=== PATIENT | male | born 1975 | race Caucasian/White ===

== ENCOUNTER 2017-03-06 21:21 | Inpatient (IN) | payer MEDICARE ==
--- NOTE | ~2017-03-06 | PA ---
Unit #: [id number] #: [id number] Patient: ADRYAN LOUISE [id number] [facility] [address] [place] [address] [id number] I MR#: [id number] NAME: ARDYAN LOUISE ROOM: [facility] [place] Age: 42 Sex: M Admission Date: 03/06/2017 : 1975 Date of Assessment: 03/07/2017 Attending Physician: Jose Angel Hoffman M.D. Admitting Physician: Jose Angel Hoffman M.D. Primary Care Physician: Primary Care Physician No PSYCHIATRIC ASSESSMENT DATE OF SERVICE 03/07/2017. INFORMANTS The patient, reliable; OLOP, reliable. CHIEF COMPLAINT "I need to get back on my medications." HISTORY OF PRESENT ILLNESS Adryan Louise is a 42-year-old man with a remote history of treatment at this facility. He says he has been using drugs and alcohol to excess and recently was released from incarceration. He has been using heroin heavily and also states he is on long-term disability for mental health issues. He had some suicidal thinking, but could not contract for safety. PAST PSYCHIATRIC HISTORY Last admission in this facility was in 2011 and he has also been at [facility], [facility], and [facility] in the past. He is currently reportedly taking Zyprexa 20 mg at bedtime for mood stability and Neurontin 800 mg t.i.d. for mood and pain. FAMILY PSYCHIATRIC HISTORY There is an extensive family history of substance abuse and unknown history of mental illness. SOCIAL HISTORY The patient denied history of childhood abuse or neglect. He is a heterosexual man who was recently fined for unclear purposes and spend some time in halfway. He completed a GED. He reports he is on long-term disability for mental health issues. He reports recently losing his apartment and car. PAST MEDICAL HISTORY The patient has a history of fibromyalgia, "Broken neck," and COPD. MEDICATIONS As noted above. ALLERGIES [place] and Thorazine. Unit #: [id number] #: [id number] Patient: ADRYAN LOUISE SUBSTANCE ABUSE HISTORY The patient is using heroin actively as well as occasional benzodiazepines. He has been smoking marijuana and using cocaine in the past and is also using illicit benzodiazepines. MENTAL STATUS EXAMINATION The patient presented as a disheveled man who appeared older than his stated age. Speech was spontaneous and easily understood. Musculoskeletal examination was calm. Mood was irritable with a congruent affect. He was alert and fully oriented. Memory and concentration were fair to good. Thought processes were goal directed with no active psychosis. He reported vague suicidal ideation and could not contract for safety. Insight and judgment, fair. Fund of knowledge and abstraction, fair. ASSETS AND LIABILITIES The patient is in general good health and knows local resources. Liabilities include difficulty maintaining sobriety, recent incarceration, lack of current psychiatric treatment. ADMITTING DIAGNOSES AXIS I: Bipolar depressed, polysubstance dependence, opioid dependence. AXIS II: No diagnosis. AXIS III: Chronic pain. AXIS IV: AXIS V: PSYCHIATRIC PLAN The patient was admitted on the opioid detox protocol and suicide precautions. We will restart Zyprexa and hold Neurontin as it exists on the protocol. He will enroll in dual diagnosis groups and activities, and physical examination and laboratory studies will be ordered and reviewed. Treatment goals are establishment of sobriety, improvement in mood, improvement in insight, and improvement in coping skills. DISCHARGE PLANNING Follow up with [facility]. ESTIMATED LENGTH OF STAY 5 days. Dictated by... Jose Angel Hoffman M.D. [facility]/reinier TD: 03/19/2017 14:07 JOB #: [id number] Unit #: [id number] #: [id number] Patient: ADRYAN LOUISE PSYCHIATRIC ASSESSMENT Page 1 of 1 X Jose Angel Hoffman MD X PSYCHIATRIC ASSESSMENT
--- NOTE | ~2017-03-06 | HP ---
Unit #: [id number] #: [id number] Patient: SHRUTHI JONES [id number] [place] [address] [id number] I MR#: [id number] NAME: SHRUTHI JONES ROOM: P210 Age: 42 Sex: M Admission Date: 03/06/2017 : 1975 Attending Physician: Jose Angel Hoffman M.D. Admitting Physician: Jose Angel Hoffman M.D. Primary Care Physician: Primary Care Physician No HISTORY AND PHYSICAL HISTORY OF PRESENT ILLNESS Shruthi is a 42 year old admitted to [address] [place] [address] because of his polysubstance abuse which includes benzodiazepines and IV heroin. PAST MEDICAL HISTORY Long history of illicit substance abuse to include IV drugs. PAST SURGICAL HISTORY 1. Low back x 2 2. Appendectomy ALLERGIES [place], chlorpromazine. SOCIAL HISTORY Smokes one pack per day. Has a long history of polysubstance abuse to include benzodiazepines, crack cocaine and IV heroin. FAMILY HISTORY Medically noncontributory. REVIEW OF SYSTEMS CONSTITUTIONAL: No fever or chills. HEENT: Denies any sore throat, ear pain or runny nose. CARDIOVASCULAR: Denies chest pain, irregular heart rhythm or palpitations. CHEST: Denies shortness of breath or cough. No hemoptysis. GASTROINTESTINAL: Denies nausea, vomiting, diarrhea or chronic constipation. ENDOCRINE: Denies history of increased thirst or urination. No recent significant weight loss or gain. GENITOURINARY: Denies dysuria, frequency, or hematuria. SKIN: Denies any rashes. HEMATOLOGIC: Denies history of increased bleeding or bruising. MUSCULOSKELETAL: He reports neck and shoulder pain. He denies any numbness, tingling or weakness in his upper extremities. NEUROLOGIC: Denies problems with vision or speech. No frequent, severe headaches. No numbness, tingling or weakness in any extremities. Denies loss of bladder or bowel control. CURRENT MEDICATIONS 1. Detox protocol 2. Requip 0.5 mg q.h.s. Unit #: [id number] #: [id number] Patient: SHRUTHI JONES 3. Zyprexa 20 mg q.h.s. 4. Motrin p.r.n. 5. Milk of Magnesia p.r.n. 6. Maalox p.r.n. 7. Tylenol p.r.n. PHYSICAL EXAMINATION GENERAL: Alert, well-nourished, in no apparent distress. VITAL SIGNS: Blood pressure 110/80, heart rate 76, respirations 16, temperature 98.6. WEIGHT: 141 pounds. HEIGHT: 5'7". SKIN: Warm and dry without rash or lesion. HEENT: Normocephalic. TMs not viewed. Oral and nasal passages clear. Conjunctivae clear. Pupils equal, round and reactive to light and accommodation. Extraocular movements intact. NECK: Supple without lymphadenopathy or thyromegaly. HEART: Regular rate and rhythm without murmur. LUNGS: Clear. ABDOMEN: Soft, nontender. : Not done. EXTREMITIES: No evidence of cyanosis, clubbing or edema. Moves all extremities without focal deficit. NEUROLOGICAL: Grossly within normal limits. Cranial Nerves: II: Visual wallace are intact. III, IV AND : Extraocular movements are intact. Pupils are equal, round and reactive to light. V: Facial sensation is grossly normal. VII: Facial movements and expression are normal. VIII: Auditory acuity grossly intact. IX, X: Uvula is midline. Phonation is normal. XI: Patient shrugs shoulders and turns head normally. XII: Tongue protrudes in the midline. Sensory and Motor Function: Sensory and motor sensation is grossly normal. Motor: moves all extremities well. Coordination: Gait is normal. Deep Tendon Reflexes: Intact. IMPRESSION Psychiatric admission RECOMMENDATIONS PSYCHIATRIC: Per psychiatrist. MEDICAL: 1. I see no contraindications to participating in facility's activities. 2. DC ibuprofen and start Relafen 500 mg one p.o. b.i.d. for his reported neck pain. 3. Screen for hepatitis C. liver enzymes are elevated on admission. MEDICAL PROGNOSIS Good. MEDICAL CONDITION Stable. Dictated by... Unit #: [id number] #: [id number] Patient: SHRUTHI JONES PDarrel-C. for Isiah Chambers TD: 03/07/2017 21:33 JOB #: [id number] HISTORY AND PHYSICAL Page 1 of 1 X Bri Coles X HISTORY AND PHYSICAL
--- NOTE | ~2017-03-06 | DS ---
Unit #: [id number] #: [id number] Patient: SHRUTHI LOUISE [id number] [place] [address] [id number] I MR#: [id number] NAME: SHRUTHI LOUISE ROOM: [facility] Age: 42 Sex: M Admission Date: 03/06/2017 : 1975 Discharge Date: 03/08/2017 Attending Physician: Jose Angel Hoffman M.D. Primary Care Physician: Primary Care Physician No DISCHARGE SUMMARY REASON FOR ADMISSION Mr. Louise is a 42-year-old man who reports he has been using heroin, benzodiazepines, and other drugs. He has recently released from incarceration and has not been able to stay on his psychiatric medications. He was admitted for stabilization. DIAGNOSTIC STUDIES LABORATORY RESULTS: Please see hospital chart. HOSPITAL COURSE The patient was admitted and placed on the opioid detox protocol and suicide precautions. His psychiatric medications were restarted. The patient was irritable and generally did not cooperate with treatment throughout the hospitalization, refusing to attend groups and complained bitterly of pain. On the date of discharge, he demanded discharge against medical advice because he wanted to seek medical treatment at an acute medical facility. He was interviewed by the beam house inspector and medical social consultant who felt that he was able to give a reliable contract for safety and was discharged AMA at his request. DISCHARGE DIAGNOSES AXIS I: Opioid dependence with withdrawal; bipolar depressed; polysubstance dependence. AXIS II: Antisocial traits. AXIS III: Chronic pain. AXIS IV: AXIS V: DISCHARGE INSTRUCTIONS Follow up with acute care facility of your choice and chemical dependence programing of your choice. DISCHARGE MEDICATIONS None. CONDITION AT DISCHARGE Fair. PROGNOSIS Fair. DIET AND ACTIVITY Unit #: [id number] #: [id number] Patient: SHRUTHI LOUISE Ad jennifer. Dictated by... Jose Angel Hoffman M.D. [facility]/denissel TD: 03/19/2017 12:42 JOB #: [id number] DISCHARGE SUMMARY Page 1 of 1 X Jose Angel Hoffman MD DISCHARGE SUMMARY
[2017-03-07 09:53] LABS: BASOPHIL# 0.1 X10e3 (0-0.3); BASOPHIL% 0.8 % (0-2.5); EOSINOPHIL# 0.4 X10e3 (0-0.7); EOSINOPHIL% 4.9 % (0.0-7.0); HEMATOCRIT 48.2 % (38.0-50.0); LYMPHOCYTE# 1.8 X10e3 (1.0-3.5); LYMPHOCYTE% 23.5 % (17.0-45.0); MEAN CELL VOLUME 97.7 FL (83-96); MEAN CORPUSCULAR HEMOGLOBIN 32.4 PG (28-34); MEAN CORPUSCULAR HGB CONC 33.2 g/dL (30-36); MEAN PLATELET VOLUME 8.3 FL (6.5-11.5); MONOCYTE% 13.2 % (3.0-12.0); NEUTROPHIL# 4.5 X10e3 (1.5-7.1); NEUTROPHIL% 57.6 % (40-75); PLATELET COUNT 289 X10e3 (140-420); RED BLOOD COUNT 4.93 X10e (3.90-5.60); RED CELL DISTRIBUTION WIDTH 13.9 % (11.0-15.5); WHITE BLOOD COUNT 7.8 X10e3 (4.0-10.5)
[2017-03-07 09:55] LABS: ALBUMIN SERUM 3.7 g/dL (3.5-5.0); BILIRUBIN,TOTAL 0.4 mg/dL (0.2-2.0); BUN/CREATININE RATIO 11.81; CALCIUM SERUM 9.5 mg/dL (8.4-10.2); CREATININE SERUM 1.1 mg/dL (0.6-1.4); GLOM FILT RATE Estimated 81.8 mL/min (>60); POTASSIUM 4.8 mmol/L (3.5-5.1); PROTEIN TOTAL SERUM 6.7 g/dL (6.0-8.3)
[2017-03-07 10:07] LABS: DIFF IND NO
== END 2017-03-08 23:18 | disposition left against medical advice (07) | DRG 894 ==
LOC: P2S 21:21
PROVIDERS: Psychiatry & Neurology Psychiatry
PROC: HZ2ZZZZ Detoxification Services for Substance Abuse Treatment (ICD-10-PCS; principal; 2017-03-06)
DX: F11.20 Opioid dependence, uncomplicated (principal); F31.30 Bipolar disorder, current episode depressed, mild or moderate severity, unspecified; M79.7 Fibromyalgia; F17.210 Nicotine dependence, cigarettes, uncomplicated
CPT/HCPCS: 80053; 85025; 86592; 87806

== ENCOUNTER 2017-03-18 15:06 | Inpatient (IN) | payer MEDICARE ==
--- NOTE | ~2017-03-18 | PN ---
Unit #: [id number] #: [id number] Patient: SHRUTHI LOUISE [id number] [facility] [address] [place] [address] [id number] I MR#: [id number] NAME: SHRUTHI LOUISE ROOM: P209 Age: 42 Sex: M Admission Date: 03/18/2017 : 1975 Attending Physician: Jose Angel Hoffman M.D. Admitting Physician: Jose Angel Hoffman M.D. Primary Care Physician: Primary Care Physician No [facility] PROGRESS NOTES DATE 03/21/2017 DISCUSSION Mr. 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 He is alert and fully oriented with an anxious and irritable mood with a congruent affect. Memory and concentration are fair and thought processes are nonpsychotic. ASSESSMENT Major depression, polysubstance attendance. PLAN Continue with current plan, restarting Neurontin for anxiety and increasing dose of Zyprexa for mood stability. At his request the patient will be transferred to chemical dependence unit. Dictated by... Isiah Reyes/elda TD: 03/23/2017 08:26 JOB #: [id number] [facility] PROGRESS NOTES Page 1 of 1 X Jose Angel Hoffman MD PROGRESS NOTE
--- NOTE | ~2017-03-18 | PN ---
Unit #: [id number] #: [id number] Patient: SHRUTHI LOUISE [id number] [facility] [address] [place] [address] [id number] I MR#: [id number] NAME: SHRUTHI LOUISE ROOM: P121 Age: 42 Sex: M Admission Date: 03/18/2017 : 1975 Attending Physician: Jose Angel Hoffman M.D. Admitting Physician: Jose Angel Hoffman M.D. Primary Care Physician: Primary Care Physician No VISHNU PROGRESS NOTES DATE 03/20/2017 DISCUSSION Mr. Louise continues to be isolative in his room. He has a depressed mood with a downcast affect. He is alert and fully oriented. Memory and concentration are fair, and his thought processes are logical with no active psychosis. He continues to endorse suicidal ideation. He is compliant with medications. ASSESSMENT Major depression. PLAN Continue current treatment plan. Dictated by... Jose Angel Hoffman M.D. [facility]/bzg TD: 03/21/2017 07:48 JOB #: [id number] [facility] PROGRESS NOTES Page 1 of 1 X Jose Angel Hoffman MD X PROGRESS NOTE
--- NOTE | ~2017-03-18 | HP ---
Unit #: [id number] #: [id number] Patient: SHRUTHI JONES [id number] [facility] [address] [place] [address] [id number] I MR#: [id number] NAME: SHRUTHI JONES ROOM: P121 Age: 42 Sex: M Admission Date: 03/18/2017 : 1975 Attending Physician: Jose Angel Hoffman M.D. Admitting Physician: Jose Angel Hoffman M.D. Primary Care Physician: Primary Care Physician No HISTORY AND PHYSICAL HISTORY OF PRESENT ILLNESS The patient is a 42-year-old male admitted to [address] [place] [address] on 03/18/2017, for suicidal ideation. The patient had a recent admission on 03/07/2017, where a History and Physical was completed. That History and Physical has been reviewed; no changes need to be made. Dictated by... Cristino Gordon/selin TD: 03/19/2017 16:20 JOB #: [id number] HISTORY AND PHYSICAL Page 1 of 1 X SUSANA SMILEY APRN HISTORY AND PHYSICAL
--- NOTE | ~2017-03-18 | CO ---
Unit #: [id number] #: [id number] Patient: SHRUTHI JONES [id number] [facility] [address] [place] [address] [id number] I MR#: [id number] NAME: SHRUTHI JONES ROOM: [facility] Age: 42 Sex: M Admission Date: 03/18/2017 : 1975 Attending Physician: Jose Angel Hoffman M.D. CONSULTATION REPORT ORDERING PROVIDER Dr. Hoffman. REASON FOR CONSULT Tooth abscess. SUBJECTIVE The patient refused to answer any questions other than who say that his teeth are. OBJECTIVE He did show me his teeth and he appears to be missing several on the bottom in the front. He is currently on clindamycin. ASSESSMENT Tooth abscess. PLAN To give the patient some Anbesol for pain and continue the clindamycin. He needs to follow up with a dentist outpatient. Dictated by... Lou Sandoval A.P.R.N. for Isiah Chambers/reinier TD: 03/19/2017 18:45 JOB #: [id number] CONSULTATION REPORT Page 1 of 1 X LOU SANDOVAL APRN CONSULTATION REPORT
--- NOTE | ~2017-03-18 | PA ---
Unit #: [id number] #: [id number] Patient: SHRUTHI LOUISE [id number] [facility] [address] [place] [address] [id number] I MR#: [id number] NAME: SHRUTHI LOUISE ROOM: P121 Age: 42 Sex: M Admission Date: 03/18/2017 : 1975 Date of Assessment: 03/19/2017 Attending Physician: Jose Angel Hoffman M.D. Admitting Physician: Jose Angel Hoffman M.D. Primary Care Physician: Primary Care Physician No PSYCHIATRIC ASSESSMENT INFORMANTS The patient, partially reliable; OLOP, reliable. CHIEF COMPLAINT "I'm feeling suicidal and very depressed." HISTORY OF PRESENT ILLNESS Shruthi Louise is a 42-year-old man with a history of bipolar disorder and polysubstance dependence. He was here earlier this month, but left AMA to seek medical care for pain. He reports he has had surgery for an impacted tooth since that time and is currently on antibiotics. He said that he is suicidal with no specific plan and could not contract for safety. He was readmitted for further assessment and stabilization. PAST PSYCHIATRIC HISTORY As noted, the patient was discharged about 10 days ago from this facility against medical advice. He has a history of hospitalization at other facilities and has been prescribed Zyprexa as a mood stabilizer, but has been noncompliant. FAMILY PSYCHIATRIC HISTORY There is a significant family history of chemical dependence issues and his maternal grandmother suffered from an unspecified mental illness. SOCIAL HISTORY The patient denied any history of childhood abuse or neglect. He is a heterosexual man with no current pending legal charges, but he was incarcerated earlier this month for not paying a fine. He has a GED and is on long-term disability due to mental health issues. He is currently homeless. PAST MEDICAL HISTORY Significant for COPD, current tooth abscess, and a history of back pain. MEDICATIONS Neurontin 800 mg t.i.d. ALLERGIES [place] and Thorazine. SUBSTANCE ABUSE HISTORY As noted previously. The patient has an extensive history of chemical dependence problems. Unit #: [id number] #: [id number] Patient: SHRUTHI LOUISE MENTAL STATUS EXAMINATION The patient presented as a disheveled man who appeared older than his stated age. He stood 5 feet 10 inches tall, weight 150 pounds. Vital signs; temperature 98.2, pulse 90, respirations 18, and blood pressure 138/92. His speech was terse, but easily understood. Musculoskeletal examination demonstrated mild psychomotor agitation. His mood was depressed and irritable with a congruent affect. He was alert and fully oriented. His memory and concentration were fair and his thought processes were logical with no active psychosis. He reported suicidal ideation, but refused to reveal a specific plan. His insight and judgment were fair. His fund of knowledge and abstraction were fair. ASSETS AND LIABILITIES The patient is familiar with local resources and presents voluntarily for treatment. Liabilities include difficulty maintaining sobriety, lack of compliance with medication, unstable housing. ADMITTING DIAGNOSES AXIS I: Bipolar depressed, F31.4; polysubstance dependence. AXIS II: Antisocial personality traits. AXIS III: Chronic pain, chronic obstructive pulmonary disease, and tooth impaction. AXIS IV: AXIS V: PSYCHIATRIC PLAN The patient was admitted and placed on suicide precautions. We will restart Zyprexa at a modest dose of 10 mg at bedtime and increase as necessary. He will enroll in dual diagnosis groups and activities, and physical examination and laboratory studies will be ordered and reviewed. Treatment goals are resolution of SI, improvement in insight, and improvement in coping skills. DISCHARGE PLANNING Follow up with [facility] through homeless outreach. ESTIMATED LENGTH OF STAY 5 days. Dictated by... Jose Angel Hoffman M.D. [facility]/reinier TD: 03/19/2017 14:33 JOB #: [id number] Unit #: [id number] #: [id number] Patient: SHRUTHI LOUISE PSYCHIATRIC ASSESSMENT Page 1 of 1 X Jose Angel Hoffman MD X PSYCHIATRIC ASSESSMENT
[2017-03-19 12:02] LABS: BASOPHIL% 0.6 % (0-2.5); EOSINOPHIL# 0.2 X10e3 (0-0.7); EOSINOPHIL% 2.1 % (0.0-7.0); HEMATOCRIT 44.4 % (38.0-50.0); HEMOGLOBIN 14.7 gm/dL (13.0-16.0); LYMPHOCYTE# 1.3 X10e3 (1.0-3.5); LYMPHOCYTE% 15.1 % (17.0-45.0); MEAN CELL VOLUME 96.2 FL (83-96); MEAN CORPUSCULAR HEMOGLOBIN 31.9 PG (28-34); MEAN CORPUSCULAR HGB CONC 33.1 g/dL (30-36); MEAN PLATELET VOLUME 7.1 FL (6.5-11.5); MONOCYTE# 0.8 X10e3 (0-1.0); MONOCYTE% 9.2 % (3.0-12.0); NEUTROPHIL# 6.2 X10e3 (1.5-7.1); PLATELET COUNT 439 X10e3 (140-420); RED BLOOD COUNT 4.61 X10e (3.90-5.60); RED CELL DISTRIBUTION WIDTH 13.5 % (11.0-15.5); WHITE BLOOD COUNT 8.4 X10e3 (4.0-10.5)
[2017-03-19 12:06] LABS: DIFF IND NO
[2017-03-19 12:41] LABS: ALBUMIN SERUM 3.4 g/dL (3.5-5.0); BILIRUBIN,TOTAL 0.7 mg/dL (0.2-2.0); BUN/CREATININE RATIO 27.14; CALCIUM SERUM 9.4 mg/dL (8.4-10.2); CREATININE SERUM 0.7 mg/dL (0.6-1.4); GLOM FILT RATE Estimated 115.6 mL/min (>60); POTASSIUM 4.4 mmol/L (3.5-5.1); PROTEIN TOTAL SERUM 6.6 g/dL (6.0-8.3)
== END 2017-03-24 09:31 | disposition home or self-care (01) | DRG 885 ==
LOC: P1S 15:06 → P2S 03-21 13:44
PROVIDERS: Psychiatry & Neurology Psychiatry
DX: F31.4 Bipolar disorder, current episode depressed, severe, without psychotic features (principal); F19.20 Other psychoactive substance dependence, uncomplicated; G89.29 Other chronic pain; J44.9 Chronic obstructive pulmonary disease, unspecified; K01.1 Impacted teeth; F17.210 Nicotine dependence, cigarettes, uncomplicated; Z88.8 Allergy status to other drugs, medicaments and biological substances; F60.2 Antisocial personality disorder
CPT/HCPCS: 80053; 85025

== ENCOUNTER 2017-05-30 13:34 | Emergency (ER) | payer MEDICARE ==
--- NOTE | ~2017-05-30 | EKG ---
PATIENT: SHRUTHI JONES UNIT #: [id number] Ventricular Rate: 66 BPM Atrial Rate: 66 BPM P-R Interval: 102 ms QRS Duration: 98 ms Q-T Interval: 426 ms QTC Calculation(Bezet): 446 ms P [place]: 67 degrees Calculated R [place]: 85 degrees Calculated T [place]: 29 degrees Diagnosis Line: Sinus rhythm with short HI Diagnosis Line: Otherwise normal ECG Diagnosis Line: No previous ECGs available Diagnosis Line: Confirmed by MICHAEL GRAHAM MD ([id number]) on Diagnosis Line: 05/31/2017 8:22:09 AM INTERPRETING MD: GLADYS FITCH
[2017-05-30 14:19] LABS: POC - CKMB 3.1 ng/mL (0.0-7.9); POC - TROPONIN <0.05 ng/mL (<=0.05)
[2017-05-30 14:49] LABS: BASOPHIL# 0.1 X10e3 (0-0.3); BASOPHIL% 0.9 % (0-2.5); EOSINOPHIL# 0.3 X10e3 (0-0.7); EOSINOPHIL% 4.8 % (0.0-7.0); HEMATOCRIT 41.6 % (38.0-50.0); LYMPHOCYTE# 1.2 X10e3 (1.0-3.5); MEAN CELL VOLUME 93.8 FL (83-96); MEAN CORPUSCULAR HEMOGLOBIN 31.5 PG (28-34); MEAN CORPUSCULAR HGB CONC 33.6 g/dL (30-36); MEAN PLATELET VOLUME 8.4 FL (6.5-11.5); MONOCYTE% 14.8 % (3.0-12.0); NEUTROPHIL% 60.5 % (40-75); PLATELET COUNT 236 X10e3 (140-420); RED BLOOD COUNT 4.43 X10e (3.90-5.60); RED CELL DISTRIBUTION WIDTH 14.5 % (11.0-15.5); WHITE BLOOD COUNT 6.6 X10e3 (4.0-10.5)
[2017-05-30 15:04] LABS: INR 1.1; PARTIAL THROMBOPLASTIN TIME 28.4 SECONDS (23.5-31.3); PROTHROMBIN TIME (PATIENT) 11.4 SECONDS (10.0-11.7)
[2017-05-30 15:19] LABS: DIFF IND NO
[2017-05-30 15:25] LABS: BILIRUBIN, DIRECT 0.3 mg/dL (0.0-0.2); BILIRUBIN,INDIRECT 0.9 mg/dL (0.0-0.9); BILIRUBIN,TOTAL 1.2 mg/dL (0.2-2.0); BUN/CREATININE RATIO 11.25; CALCIUM SERUM 8.4 mg/dL (8.4-10.2); CREATININE SERUM 0.8 mg/dL (0.6-1.4); GLOM FILT RATE Estimated 109.5 mL/min (>60); PROTEIN TOTAL SERUM 6.8 g/dL (6.0-8.3)
[2017-05-30 15:28] LABS: POTASSIUM 2.7 mmol/L (3.5-5.1)
== END 2017-05-30 14:38 | disposition left against medical advice (07) ==
LOC: CED 13:34
PROVIDERS: Emergency Medicine
DX: R07.9 Chest pain, unspecified (principal); F17.210 Nicotine dependence, cigarettes, uncomplicated; Z88.1 Allergy status to other antibiotic agents; Z88.8 Allergy status to other drugs, medicaments and biological substances
CPT/HCPCS: 36415; 80048; 80076; 82553; 84484; 85025; 85379; 85610; 85730; 93005; 99285

== ENCOUNTER 2017-06-15 18:55 | Emergency (ER) | payer MEDICARE ==
[~2017-06-15] VITALS: Ht 177.8 cm; Wt 68.0 kg
== END 2017-06-15 21:55 | disposition home or self-care (01) ==
LOC: CED 18:55
DX: K02.9 Dental caries, unspecified (principal); F19.10 Other psychoactive substance abuse, uncomplicated; J44.9 Chronic obstructive pulmonary disease, unspecified; F17.200 Nicotine dependence, unspecified, uncomplicated; Z88.1 Allergy status to other antibiotic agents; Z88.8 Allergy status to other drugs, medicaments and biological substances
CPT/HCPCS: 99282

== ENCOUNTER 2017-07-18 10:10 | Observation (INO) | payer MEDICARE ==
[~2017-07-18] VITALS: Ht 177.8 cm; Wt 68.0 kg
--- NOTE | ~2017-07-18 | HP ---
Unit #: [id number] #: [id number] Patient: SHRUTHI JONES [id number] [address] [address] [id number] I MR#: [id number] NAME: SHRUTHI JONES ROOM: 81795 Age: 42 Sex: M Admission Date: 07/18/2017 : 1975 Attending Physician: Brenton Lieberman M.D. Primary Care Physician: No Primary Care Physician HISTORY AND PHYSICAL CHIEF COMPLAINT Spider bite, nausea and vomiting. HISTORY OF PRESENT ILLNESS The patient is a 42-year-old man with history of IV drug abuse and polysubstance abuse, who presented to the emergency room with worsening left elbow pain. The patient stated that patient had a spider bite two weeks ago and was seen at [facility]. The patient had I and D and was discharged home on oral antibiotics, Bactrim. However, the patient did not fill the prescription and came to the emergency room complaining of worsening pain. Patient uses IV heroin and the last use was yesterday and also complaining of nausea and vomiting. Denies any fever. Denies any chills. Uses IV heroin in the other arm, not on the left side where the wound is present with open wound, with induration, no drainage. PAST MEDICAL HISTORY History of illicit drug abuse and polysubstance abuse. PAST SURGICAL HISTORY 1. Low-back surgery x2. 2. Appendectomy. ALLERGIES [place], chlorpromazine. SOCIAL HISTORY Smokes one pack per day. Has long history of polysubstance abuse to include benzodiazepine, crack cocaine, and IV heroin. FAMILY HISTORY Reviewed and none. HOME MEDICATIONS 1. Zyprexa. 2. Neurontin. 3. Zoloft. REVIEW OF SYSTEMS Positive for nausea and vomiting. Positive for the cut mcdaniels on the belly with suicidal ideation in the past. Denies any suicidal ideation right now. Positive for the open wound on the elbow. All other systems have been reviewed and none. PHYSICAL EXAMINATION Unit #: [id number] #: [id number] Patient: SHRUTHI JONES GENERAL: Patient is sitting on the bed, not in acute distress. VITAL SIGNS: Temperature 98.2, pulse 81, respiratory rate 20, blood pressure 110/60, saturating 98% on 3 L. HEENT: Head: Atraumatic, normocephalic. Pupils equal, round, and reactive to light and accommodation. Extraocular movements are intact. NECK: Supple. LUNGS: Decreased air entry at the bases. HEART: Regular rate and rhythm. ABDOMEN: Soft. Positive bowel sounds. Positive tract mcdaniels on the belly with healed scars. EXTREMITIES: Patient has left elbow tenderness with minimal erythema and minimal induration with an open wound, no drainage. NEUROLOGIC: Alert, awake, oriented. PSYCHIATRIC: Appears anxious. DIAGNOSTIC STUDIES LABORATORY: Sodium 131, potassium 3.9, chloride 93, bicarbonate 27, glucose 78, BUN 20, creatinine 0.8, calcium 8.8. WBC 11.6, hemoglobin 12.2, hematocrit 35.9, platelets 255,000. ASSESSMENT 1. Cellulitis of the left elbow with the open wound. 2. Polysubstance abuse. 3. Nausea and vomiting. PLAN Plan to admit the patient to observation with telemetry. Patient will continue with IV antibiotics with clindamycin. Will have LSA for the probable incision and drainage. Check x-ray of the elbow and check the lactic acid. Will have the psych evaluation for the polysubstance abuse as seen in the past. Continue with the Zofran for the nausea and vomiting and further recommendations will follow. Dictated by Isiah Stevens/rylie TD: 07/18/2017 17:16 JOB #: [id number] HISTORY AND PHYSICAL Page 1 of 1 X BRENTON LIEBERMAN MD X HISTORY AND PHYSICAL
--- NOTE | ~2017-07-18 | DS ---
Unit #: [id number] #: [id number] Patient: SHRUTHI JONES [id number] [address] [address] [id number] I MR#: [id number] NAME: SHRUTHI JONES ROOM: 306 Age: 42 Sex: M Admission Date: 07/18/2017 : 1975 Discharge Date: 07/19/2017 Attending Physician: Samuel Adam M.D. Primary Care Physician: No Primary Care Physician DISCHARGE SUMMARY PRIMARY DIAGNOSIS Left elbow cellulitis and possible bursitis. SECONDARY DIAGNOSIS IV heroin abuse. HOSPITAL COURSE The patient was placed in observation status, started on IV antibiotics. Orthopaedic Surgery was consulted with Dr. George Ruiz. The patient had I and D already at [facility] previously and, per Dr. Ruiz, no additional I and D was necessary. The patient had failed to bulk picker his antibiotics leaving [facility]. We will try to get him antibiotics here prior to him leaving the hospital. He is being switched to Bactrim at discharge for 10 days. He does not have a clinic or a PCP to go to. I have advised him that if he has any worsening and his lesion is showing some clinical improvement already, even after a short hospital stay. I have advised him that if his erythema begins worsening again, he should come back to the emergency room on Monday to be reevaluated. He is being provided heroin abuse resources by the social work case manager prior to discharge. DISCHARGE DISPOSITION To home. DISCHARGE STATUS Stable. DISCHARGE ACTIVITY Ad jennifer. DISCHARGE DIET Unrestricted. DISCHARGE FOLLOWUP With the PCP of his choice in one to two months and he is advised to follow up with the ER on Monday if his erythema is worsening. DISCHARGE MEDICATIONS Bactrim DS one tablet p.o. twice daily for 10 days. Unit #: [id number] #: [id number] Patient: SHRUTHI JONES Dictated by... Samuel Adam M.D. FRANSISCO/zoey TD: 07/20/2017 07:22 JOB #: [id number] DISCHARGE SUMMARY Page 1 of 1 X Samuel Adam MD X DISCHARGE SUMMARY
--- NOTE | ~2017-07-18 | CR90 ---
[facility] A Service of [facility] & [facility] RADIOLOGY TEXT RESULTS PATIENT: SHRUTHI JONES LOCATION: C3A 306-01 : [birth year] UNIT #: [id number] AGE: [address]: Samuel Adam MD SEX: M ORDER DR: [id number] [facility] [address]. [place], [place] [address] [id number] MR#: [id number] Acc #: [id number] NAME: SHRUTHI JONES : 1975 SEX: M STUDY DATE/TIME: 07/18/2017 21:25 UNIT: C3A U ROOM: [facility] STUDY DESCRIPTION: CR Elbow 2 View Lt Attending Physician: Sameul Adam M.D. Ordering Physician: Amilcar Rosen M.D. Primary Care Physician: No Primary Care Physician MEDICAL IMAGING REPORT This report is preliminary unless electronic signature is present EXAM Left elbow HISTORY Pain and swelling for the past 2 weeks. TECHNIQUE 3 views of the elbow were obtained. FINDINGS Soft tissue swelling is seen over the olecranon bursa. There is no evidence of foreign body. No joint effusion is seen. No bony abnormalities are noted. IMPRESSION Soft tissue swelling of the olecranon process, likely reflecting an olecranon bursitis. No bony abnormalities are seen. Dictated by... Alejandro Gonzalez M.D. THIS IS AN ELECTRONICALLY VERIFIED REPORT Alejandro Gonzalez M.D. at 07/20/2017 7:08 AM RLF/jimmie TD: 07/19/2017 08:58 JOB #: [id number] MEDICAL IMAGING REPORT Page 1 of 1 COPY
--- NOTE | ~2017-07-18 | CO ---
Unit #: [id number] #: [id number] Patient: SHRUTHI JONES [id number] [facility] [address] [facility]. [place], [place] [address] [id number] I MR#: [id number] NAME: SHRUTHI JONES ROOM: 306 Age: 42 Sex: M Admission Date: 07/18/2017 : 1975 Attending Physician: Samuel Adam M.D. Primary Care Physician: Primary Care Physician No Consultation Date: 07/19/2017 CONSULTATION REPORT REASON FOR CONSULTATION Bipolar disorder. HISTORY OF PRESENT ILLNESS Mr. Shruthi Jones is a 42-year-old white male, seen in room 306, bed 1, on 07/19/2017, at [facility]. The patient reports that he has an abscess on his left arm from a spider bite. The patient denied any use of any drugs or alcohol. The patient has a history of previous followup at [facility]. Last admitted on 06/06/2017, diagnosed with bipolar mood disorder. The patient was on Neurontin and Zyprexa. The patient was keeping his eyes closed, dressed casually in hospital attire, withdrawn, isolative, flat affect, but denied any thoughts of harming self or others. The patient has a history of IV heroin use, last use was yesterday. The patient's urine toxicology came back negative. The patient's vital signs; temperature 98.2, heart rate 64, respiratory rate 16, blood pressure 106/63, and oxygen saturation 96%. PAST PSYCHIATRIC HISTORY Remarkable for history of bipolar disorder and history of recent admission at [facility] in 05/2017. MEDICAL HISTORY Medical history is remarkable for history of low back surgery. No other chronic medical condition. MEDICATION HISTORY The patient is on Zyprexa, Neurontin, and Zoloft. ALLERGIES To lithium and chlorpromazine. FAMILY HISTORY AND SOCIAL HISTORY The patient reports that he has good support system. No history of abuse. History of substance abuse as mentioned above and IV heroin, but urine drug screen negative. REVIEW OF SYSTEMS Complete review of systems is unremarkable. MENTAL STATUS EXAMINATION General appearance, the patient dressed casually in hospital attire. Attention span and concentration, poor. Speech, slow in volume. Oriented in place and person. Mood and affect, labile. Thought process, circumstantial. Thought content, the patient was guarded and paranoid, Unit #: [id number] #: [id number] Patient: SHRUTHI JONES but denied any thoughts of harming self or others. Recent and remote memory, fair to slightly impaired. Language, fair. Fund of knowledge, fair. Insight and judgment, fair to slightly impaired. DIAGNOSES Psychiatric: Bipolar mood disorder, recurrent, severe, depressed, F31.9 and rule out opioid use disorder, F11.20. Secondary diagnosis: Deferred. Medical diagnosis: Please refer to H and P. Stressors: Psychosocial stressor. ASSESSMENT/PLAN 1. Supportive psychotherapy and psychoeducation provided to the patient. 2. Educated about benefits and side effects of medication and course and prognosis of illness. 3. Advised to continue with home medication and if needed, consider further adjustment of medication. We will continue to follow and make further adjustment of medication. Please feel free to call if any questions, telephone #[phone]. Dictated by... Isiah Castro/reinier TD: 07/19/2017 18:59 JOB #: [id number] CONSULTATION REPORT Page 1 of 1 X Toan Pacheco MD X CONSULTATION REPORT
--- NOTE | ~2017-07-18 | CO ---
Unit #: [id number] #: [id number] Patient: SHRUTHI LOUISE [id number] [address] [address] [id number] I MR#: [id number] NAME: SHRUTHI LOUISE ROOM: 306 Age: 42 Sex: M Admission Date: 07/18/2017 : 1975 Attending Physician: Samuel Adam M.D. Primary Care Physician: Primary Care Physician No Consultation Date: 07/18/2017 CONSULTATION REPORT CHIEF COMPLAINT Left elbow pain. HISTORY OF PRESENT ILLNESS Mr. Louise is a 42-year-old gentleman with a history of IV drug use with a left elbow infection, which was treated initially at [place]. He had, what appears to be, a left elbow septic olecranon bursitis. This underwent some sort of local or bedside I and D. He responded well to this and IV antibiotics. However, upon discharge, he failed to obtain any outpatient antibiotic coverage due to a lapse in his insurance coverage for prescription drugs. He then developed a recurrent infection and [facility] He is now being admitted for another course of IV antibiotics. He reports drainage from the left elbow. Orthopedic consultation has been requested for possible need for surgical management. He states that his left elbow was painful over the posterior aspect of the elbow with range of motion and tender to touch. He states he has had drainage for several days, but denies fevers at home. PAST MEDICAL HISTORY 1. Polysubstance abuse. 2. Bipolar disorder. 3. History of suicidal ideation. Recent discharge from [facility] on 06/06/2017. 4. COPD. 5. Tooth abscess. PAST SURGICAL HISTORY Appendectomy and I and D of multiple abscesses. HOME MEDICATIONS Zyprexa, Neurontin, Zoloft. ALLERGIES [place], clindamycin, chlorpromazine. SOCIAL HISTORY The patient smokes one pack of cigarettes daily. He has a history of polysubstance abuse including benzodiazepines, cocaine, and IV heroin. He is not working. FAMILY HISTORY Noncontributory to the current illness. Unit #: [id number] #: [id number] Patient: SHRUTHI LOUISE REVIEW OF SYSTEMS Significant for chills, nausea, and vomiting at home, and otherwise negative except as noted in the HPI upon review of 10 systems. PHYSICAL EXAMINATION GENERAL APPEARANCE: Disheveled-appearing gentleman appearing older than stated age. PSYCHIATRIC: Awake, alert, and oriented to person, place, and time with normal range of mood and affect. No suicidal ideation. CARDIAC: Regular rate and rhythm. PULMONARY: No increased work of breathing. Symmetric chest rise. ABDOMEN: Nondistended. NEUROLOGIC: Intact median, ulnar, radial nerve motor and sensory function. SKIN: There is a small open area over the lateral aspect of the olecranon at the site of a previous I and D. There is serous drainage from this area. There is overlying cellulitis. He has a boggy inflammation of the olecranon bursa. MUSCULOSKELETAL: He has full painless range of motion of the left elbow aside from tenderness over the posterior aspect. There is no evidence or concern for septic arthritis of the elbow. VASCULAR: His hand is warm and well perfused with brisk capillary refill. LYMPHATICS: No evidence of lymphedema or lymphadenopathy. DIAGNOSTIC STUDIES LABORATORY RESULTS: Drug screen is positive for THC only. White blood cell count is 11.6, hemoglobin is 12.2, platelet count is 255 with 82.4% neutrophils. BMP is unremarkable aside from a sodium of 131. IMPRESSION A 42-year-old gentleman with left elbow recurrent septic olecranon bursitis despite initially successful bedside I and D at [facility], secondary to noncompliance with outpatient antibiotic therapy. PLAN He seemed to respond well initially apparently to local I and D and IV antibiotics. He now has recurrent infection overlying the olecranon bursa. This is already draining through the previously packed I and D site. A repeat surgical procedure may not be necessary. He has been started on IV antibiotics. I would recommend continued IV antibiotics and then overnight observation. If he has no response to IV antibiotics, then we will plan for a repeat I and D with a formal olecranon bursectomy in the operating room. If he responds to IV antibiotics, then he may be treated appropriately with definitive IV antibiotics and then transitioned to oral regimen at discharge provided he has appropriate support in place to obtain the antibiotics. We will continue to follow his exam. Dictated by... George Ruiz M.D. DELFIN/reinier TD: 07/19/2017 06:30 JOB #: [id number] Unit #: [id number] #: [id number] Patient: SHRUTHI LOUISE CONSULTATION REPORT Page 1 of 1 X George Ruiz MD CONSULTATION REPORT
[2017-07-18 11:26] LABS: BASOPHIL% 0.4 % (0-2.5); EOSINOPHIL% 0.1 % (0.0-7.0); HEMATOCRIT 35.9 % (38.0-50.0); HEMOGLOBIN 12.2 gm/dL (13.0-16.0); LYMPHOCYTE# 0.8 X10e3 (1.0-3.5); LYMPHOCYTE% 6.6 % (17.0-45.0); MEAN CELL VOLUME 91.1 FL (83-96); MEAN PLATELET VOLUME 7.3 FL (6.5-11.5); MONOCYTE# 1.2 X10e3 (0-1.0); MONOCYTE% 10.5 % (3.0-12.0); NEUTROPHIL# 9.5 X10e3 (1.5-7.1); NEUTROPHIL% 82.4 % (40-75); PLATELET COUNT 255 X10e3 (140-420); RED BLOOD COUNT 3.93 X10e (3.90-5.60); RED CELL DISTRIBUTION WIDTH 14.3 % (11.0-15.5); WHITE BLOOD COUNT 11.6 X10e3 (4.0-10.5)
[2017-07-18 11:29] LABS: DIFF IND NO
[2017-07-18 12:10] LABS: CALCIUM SERUM 8.8 mg/dL (8.4-10.2); CREATININE SERUM 0.8 mg/dL (0.6-1.4); GLOM FILT RATE Estimated 109.5 mL/min (>60); POTASSIUM 3.9 mmol/L (3.5-5.1)
[2017-07-18] MEDS ORDERED: NO MEDICATIONS (14:48)
[2017-07-19 05:39] LABS: BASOPHIL# 0.1 X10e3 (0-0.3); BASOPHIL% 1.1 % (0-2.5); EOSINOPHIL# 0.2 X10e3 (0-0.7); EOSINOPHIL% 4.2 % (0.0-7.0); HEMATOCRIT 36.4 % (38.0-50.0); HEMOGLOBIN 12.4 gm/dL (13.0-16.0); LYMPHOCYTE# 1.5 X10e3 (1.0-3.5); LYMPHOCYTE% 27.3 % (17.0-45.0); MEAN CELL VOLUME 92.1 FL (83-96); MEAN CORPUSCULAR HEMOGLOBIN 31.4 PG (28-34); MEAN CORPUSCULAR HGB CONC 34.1 g/dL (30-36); MEAN PLATELET VOLUME 7.7 FL (6.5-11.5); MONOCYTE# 0.8 X10e3 (0-1.0); MONOCYTE% 14.7 % (3.0-12.0); NEUTROPHIL# 2.9 X10e3 (1.5-7.1); NEUTROPHIL% 52.7 % (40-75); PLATELET COUNT 244 X10e3 (140-420); RED BLOOD COUNT 3.95 X10e (3.90-5.60); RED CELL DISTRIBUTION WIDTH 14.4 % (11.0-15.5)
[2017-07-19 06:03] LABS: DIFF IND NO; WHITE BLOOD COUNT 5.5 X10e3 (4.0-10.5)
[2017-07-19 06:21] LABS: BUN/CREATININE RATIO 21.42; CALCIUM SERUM 8.2 mg/dL (8.4-10.2); CREATININE SERUM 0.7 mg/dL (0.6-1.4); GLOM FILT RATE Estimated 115.6 mL/min (>60); POTASSIUM 3.4 mmol/L (3.5-5.1)
[2017-07-19 07:08] LABS: AMPHETAMINE NEG (NEG); BARBITURATES NEG (NEG); BENZODIAZEPINES NEG (NEG); COCAINE NEG (NEG); MARIJUANA NEG (NEG); OPIATES NEG (NEG); TRICYCLIC ANTIDEPRESSANTS NEG (NEG); U METHADONE NEG (NEG)
[2017-07-19] MEDS ORDERED: BACTRIM DS TAB1 EACH PO (13:50)
== END 2017-07-19 17:39 | disposition home or self-care (01) ==
LOC: CED 10:10 → CFTX 10:10 → CED 11:55 → CEDOF 12:43 → CED 13:02 → C3A PCU 20:28 → CEDOF 20:28 → C3A PCU 20:28
PROVIDERS: Emergency Medicine; Internal Medicine
DX: L03.114 Cellulitis of left upper limb (principal); S51.052A Open bite, left elbow, initial encounter; R11.2 Nausea with vomiting, unspecified; F19.10 Other psychoactive substance abuse, uncomplicated; F17.210 Nicotine dependence, cigarettes, uncomplicated; Z88.1 Allergy status to other antibiotic agents; Z88.8 Allergy status to other drugs, medicaments and biological substances; Z98.890 Other specified postprocedural states
CPT/HCPCS: 36415; 73070; 80048; 80307; 83605; 85025; 87040; 96365; 96366; 96376; 99285; G0378; J1650; J2250; J2405; J3010; J3370